=== PATIENT | male | born 1960 | race Asian ===

== ENCOUNTER 2018-01-24 08:37 | Day surgery (SDC) | payer BC ==
[~2018-01-24 08:37] MED LIST: DEXAMETHASONE 4 MG/ML 1 ML INJ; ONDANSETRON 4 MG INJ
[2018-01-24] MEDS ORDERED: PROPOFOL 20 ML (12:18)
[2018-01-24] MEDS ORDERED: ROCURONIUM 50 MG INJ (12:18)
[2018-01-24] MEDS ORDERED: CEFAZOLIN 1 GM INJ (12:23)
[2018-01-24] MEDS ORDERED: hydrALAzine 20 MG INJ (12:42)
[2018-01-24] MEDS: ROPIVACAINE 0.5 % 30 ML VIAL (13:05)
[2018-01-24] MEDS ORDERED: SUGAMMADEX SODIUM 200 MG/2 ML VIAL IV (13:35)
[2018-01-24] MEDS ORDERED: SOD CHLORIDE 0.9% 1,000 ML IV (13:51)
[2018-01-24] MEDS ORDERED: LABETALOL HCL 20MG INJ IV (14:00)
[2018-01-24] MEDS ORDERED: FENTAnyl 50 MCG/ML VIAL IV ×3 (14:00)
[2018-01-24] MEDS ORDERED: KETOROLAC 30 MG INJ IV (14:00)
[2018-01-24] MEDS ORDERED: DIPHENHYDRAMINE 50 MG INJ IV (14:00)
[2018-01-24] MEDS ORDERED: ONDANSETRON 4 MG INJ IV ×2 (14:00)
[2018-01-24] MEDS ORDERED: MEPERIDINE 25 MG INJ IV (14:00)
[2018-01-24] MEDS ORDERED: HYDROmorphONE 1 MG/5 ML IV SYRINGE IV ×3 (14:00)
[2018-01-24] MEDS ORDERED: morphine 2 MG INJ IV (14:00)
[2018-01-24] MEDS ORDERED: OXYCODONE/ACETAMINOPHEN (5/325) TAB PO ×2 (14:00)
== END 2018-01-24 16:06 | disposition home or self-care (01) ==
LOC: SDS 08:37
DX: S83.231D Complex tear of medial meniscus, current injury, right knee, subsequent encounter (principal); S83.271D Complex tear of lateral meniscus, current injury, right knee, subsequent encounter; X58.XXXD Exposure to other specified factors, subsequent encounter; M94.261 Chondromalacia, right knee
CPT/HCPCS: 29881; 82962